=== PATIENT | female | born 1990 | race Caucasian/White ===

== ENCOUNTER 2021-01-22 15:29 | Emergency (ER) | payer SELFPAY ==
[~2021-01-22] VITALS: Ht 160 cm; Wt 72.1 kg
[2021-01-22 15:41] VITALS: Ht 160 cm; Wt 72.1 kg
[2021-01-22 18:03] LABS: BASOPHIL % 0.4 % (0.2-1.3); PLATELET COUNT 318 x10^3mcL (179-408); RED CELL DISTRIBUTION WIDTH 11.9 % (12.3-17.7)
[2021-01-22 18:08] LABS: CALCIUM 9.2 mg/dL (8.5-10.1); CARBON DIOXIDE 27.2 mmol/L (21-32); CHLORIDE SERUM 100 mmol/L (98-107); CREATININE SERUM 0.6 mg/dL (0.6-1.0); GFR1 > 60 mL/min; GLUCOSE SERUM 87 mg/dL (74-106); POTASSIUM SERUM 3.6 mmol/L (3.5-5.1); SODIUM SERUM 136 mmol/L (136-145)
[2021-01-22 18:13] LABS: ALBUMIN 4.1 g/dL (3.4-5.0); ALKALINE PHOSPHATASE 53 U/L (46-116); ALT/SGPT 28 U/L (14-59); AST/SGOT 16 U/L (15-37); BILIRUBIN TOTAL 0.2 mg/dL (0.20-1.00); TOTAL PROTEIN, SERUM 7.9 g/dL (6.4-8.2)
[2021-01-22] MEDS ORDERED: IBU600 M2 PO (18:26)
[2021-01-22 18:33] VITALS: BP 120/70
== END 2021-01-22 18:44 | disposition home or self-care (01) ==
LOC: ED 15:29
PROVIDERS: Emergency Medicine
DX: D25.9 Leiomyoma of uterus, unspecified (principal); Z88.0 Allergy status to penicillin
CPT/HCPCS: J7030